=== PATIENT | male | born 1980 | race African-American/Black ===

== ENCOUNTER 2019-05-28 15:06 | Emergency (ER) | payer BC ==
[~2019-05-28] VITALS: Ht 180.3 cm; Wt 75.0 kg
--- NOTE | 2019-05-28 15:24 | PHYS DOC ---
Past Medical History Past Medical History: No Pertinent History Past Surgical History: No Surgical History Alcohol Use: None Drug Use: None Adult General Chief Complaint Chief Complaint: SHORTNESS OF BREATH HPI HPI Patient is a 39 year old male who presents with history of asthma and has had a cough with brown sputum and shortness of breath since last night. Patient does have a history of asthma. He states he has been wheezing and he last used his albuterol inhaler last night of which he ran out. He has no nebulizer at home. 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 Patient denies chest pain, headache, dizziness, nausea, vomiting, abdominal pain, diarrhea, fever, nasal congestion, visual changes, weakness, numbness or tingling. Review of Systems Review of Systems Respiratory: cough or shortness of breath [] All other systems were reviewed and found to be within normal limits, except as documented in this note. Current Medications Current Medications Current Medications Medications (Trade) Dose Ordered Sig/Db Start Time Stop Time Status Last Admin Dose Admin Albuterol Sulfate (Ventolin Neb Soln) 2.5 mg 1X ONCE 05/28/19 15:30 05/28/19 15:31 DC 05/28/19 15:33 2.5 MG Prednisone (Prednisone) 50 mg 1X ONCE 05/28/19 15:30 05/28/19 15:31 DC 05/28/19 15:33 50 MG Allergies Allergies Allergies Coded Allergies Type Severity Reaction Last Updated Verified No Known Drug Allergies 11/15/13 No Physical Exam Physical Exam Constitutional: Well developed, well nourished, no acute distress, non-toxic appearance. [] HENT: Normocephalic, atraumatic, bilateral external ears normal, oropharynx moist, no oral exudates, nose normal. [] Eyes: PERRLA, EOMI, conjunctiva normal, no discharge. [] Neck: Normal range of motion, no tenderness, supple, no stridor. [] Cardiovascular:Heart rate regular rhythm, no murmur [] Lungs & Thorax: Bilateral upper breath sounds inspiratory expiratory wheezing and lower lobes clear to auscultation [] Abdomen: Bowel sounds normal, soft, no tenderness, no masses, no pulsatile masses. [] Skin: Warm, dry, no erythema, no rash. [] Back: No tenderness, no CVA tenderness. [] Extremities: No tenderness, no cyanosis, no clubbing, ROM intact, no edema. [] Neurologic: Alert and oriented X 3, normal motor function, normal sensory function, no focal deficits noted. [] Psychologic: Affect normal, judgement normal, mood normal. [] Current Patient Data Vital Signs Vital Signs Date Time Temp Pulse Resp B/P (MAP) Pulse Ox O2 Delivery O2 Flow Rate FiO2 05/28/19 15:34 95 Room Air 05/28/19 15:14 98.2 80 20 132/90 (104) 98.2 Lab Values Laboratory Tests Test 05/28/19 16:12 Influenza Type A Antigen Negative (NEGATIVE) Influenza Type B Antigen Negative (NEGATIVE) EKG EKG [] Radiology/Procedures Radiology/Procedures [] Impressions: [facility] [id number] [place], [place] [id number] IMAGING REPORT Signed PATIENT: JOLEEN CASTORENA ACCOUNT: [id number] : 1980 LOCATION: ER AGE: 39 SEX: M EXAM STATUS: REG ER ORD. PHYSICIAN: EDWIN SHAH APRN REASON: wheezing, cough, coa PROCEDURE: CHEST PA & LATERAL CHEST PA LATERAL Clinical indications: Wheezing and cough and shortness of air. COMPARISON: December 23, 2013. Findings: No acute lung infiltrate or pleural effusion or pulmonary edema or lung mass or pneumothorax is seen. The heart size, pulmonary vasculature, mediastinum and both negar are unremarkable. The osseous structures appear intact. Impression: No acute radiographic abnormality is seen. Electronically signed by: Tracey Ernandez MD (05/28/2019 4:36 PM) [facility] [place] DICTATED and SIGNED BY: TRACEY ERNANDEZ MD DATE: 05/28/19 1636 Course & Med Decision Making Course & Med Decision Making He does feel short of breath and nothing makes it better or worse. Ambulatory with a steady gait. Skin pink warm and dry. Speaks in full complete sentences. Inspiratory expiratory wheezes bilaterally. No extremity swelling. Abdomen soft and nontender. 95% on room air. No respiratory distress. Patient has improved after breathing treatment and prednisone in the ED. Dragon Disclaimer Dragon Disclaimer This electronic medical record was generated, in whole or in part, using a voice recognition dictation system. Departure Departure Impression: Primary Impression: Asthma Disposition: 01 HOME, SELF-CARE Condition: STABLE Referrals: NATASHA HERNANDES MD (PCP) Patient Instructions: Asthma, Adult Additional Instructions: Follow up with primary care provider. Begin Medrol dose pack tomorrow as you have already received Prednisone today. Drink plenty of fluids. Take medications as prescribed. Scripts Albuterol Sulfate (PROAIR HFA INHALER) 8.5 Gm Hfa.aer.ad 1 PUFF INH PRN Q6HRS PRN for SHORTNESS OF BREATH, #1 INHALER 0 Refills Prov: EDWIN SHAH [employer] PROFESSIONAL 05/28/19 Benzonatate (TESSALON PERLE) 100 Mg Capsule 1 CAP PO TID, #30 CAP Prov: EDWIN SHAH APRN 05/28/19 Methylprednisolone (MEDROL) 4 Mg Tab.ds.pk 1 PKG PO UD, #1 PKG Prov: EDWIN SHAH APRN 05/28/19 Problem Qualifiers Primary Impression: Asthma Asthma severity: mild Asthma persistence: intermittent Asthma complication type: uncomplicated Qualified Codes: J45.20 - Mild intermittent asthma, uncomplicated EDWIN SHAH [employer] PROFESSIONAL May 28, 2019 15:24
[2019-05-28] MEDS ORDERED: predniSONE 10 MG TABLET PO ONE (15:30)
[2019-05-28] MEDS ORDERED: ALBUTEROL SULFATE 2.5 MG/3 ML NEBU. NEB ONE (15:30)
[2019-05-28 15:49] VITALS: BP 130/74
--- NOTE | 2019-05-28 16:39 | RAD ---
CHEST PA LATERAL Clinical indications: Wheezing and cough and shortness of air. COMPARISON: December 23, 2013. Findings: No acute lung infiltrate or pleural effusion or pulmonary edema or lung mass or pneumothorax is seen. The heart size, pulmonary vasculature, mediastinum and both negar are unremarkable. The osseous structures appear intact. Impression: No acute radiographic abnormality is seen. Electronically signed by: Checo Ernandez MD (05/28/2019 4:36 PM) [facility] [place]
[2019-05-28] MEDS ORDERED: BENZ100C PO (16:43)
[2019-05-28] MEDS ORDERED: METH4TAB2 PO (16:43)
[2019-05-28] MEDS ORDERED: ALBU2.5V8 INH (16:43)
[2019-05-28 16:45] LABS: INFLUENZA A PATIENT NEGATIVE (NEGATIVE); INFLUENZA B PATIENT NEGATIVE (NEGATIVE)
== END 2019-05-28 16:55 | disposition home or self-care (01) ==
LOC: ER 15:06
DX: J45.20 Mild intermittent asthma, uncomplicated (principal); R05 Cough
CPT/HCPCS: 71046; 87804; 94640; 99285; J7512; J7613